=== PATIENT | male | born 1965 | race Two or more races ===

== ENCOUNTER 2025-01-05 06:22 | Inpatient (IN) | payer MEDICAID, OTHER ==
[~2025-01-05] VITALS: Ht 172.7 cm; Wt 103.0 kg
[~2025-01-05 06:22] MED LIST: AMIO200T13 PO; ATOR40TA52 PO; CLOP75TA70 PO; EMPA1TAB PO; METO25TA93 PO; SACU1TAB PO; SPIR25TA8 PO
[2025-01-05] MEDS: ONDANSETRON HCL 4 MG/2 ML VIAL IV ONE (07:00)
[2025-01-05] MEDS: MORPHINE SULFATE 4 MG/ML SYR/VIAL IV ONE (07:00)
--- NOTE | 2025-01-05 07:02 | ED.PDOC ---
History of Present Illness HPI Comments 59-year-old male BIBA with prior medical history of hypertension, mi x4: Surgical history of PTCA eight weeks go x1 and a chief complaint of chest pain. EMS report that the patient is visiting family when he had a sudden onset of pressure-like center chest pain x4/10 and took nitro 1:30 a.m.. States on t aking another nitro at 4:30 a.m. and started to get 6/10 chest pain. 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 Denies chills, fever, N/V/D, SOB. No other associated symptoms, modifiers, recent injuries or sick contacts present at this time. Time Seen by MD: 07:00 Reviewed Notes: Nurses Notes, Medications, Allergies Allergies: Coded Allergies: NO KNOWN ALLERGIES (Unverified , 01/05/25) Information Source: Patient, Emergency Med Personnel Mode of Arrival: EMS Severity: Moderate Timing: Hours Duration: Since onset, Hours Prehospital treatment: None Past Medical History PAST MEDICAL HISTORY: HTN, ID (X4) Surgical History: PTCA (X1 eight weeks ago), Denies all surgeries Family History Family History: Reviewed,noncontributory to illness, Unknown Social History Smoker: Non-Smoker Alcohol: Denies ETOH Use Drugs: Denies Drug Use Lives In: Home Constitutional: denies: chills, diaphoresis, fatigue, fever, malaise, sweats, weakness, others EENTM: denies: blurred vision, double vision, ear bleeding, ear discharge, ear drainage, ear pain, ear ringing, eye pain, eye redness, hearing loss, mouth pain, mouth swelling, nasal discharge, nose bleeding, nose congestion, nose pain, photophobia, tearing, throat pain, throat swelling, voice changes, others Respiratory: denies: cough, hemoptysis, orthopnea, SOB at rest, shortness of breath, SOB with excertion, stridor, wheezing, others Cardiovascular: reports: chest pain; denies: dizzy spells, diaphoresis, Dyspnea on exertion, edema, irregular heart beat, left arm pain, lightheadedness, palpitations, PND, syncope, others Gastrointestinal: denies: abdomen distended, abdominal pain, blood streaked bowels, constipated, diarrhea, dysphagia, difficulty swallowing, hematemesis, melena, nausea, poor appetite, poor fluid intake, rectal bleeding, rectal pain, vomiting, others Genitourinary: denies: burning, dysuria, flank pain, frequency, hematuria, incontinence, penile discharge, penile sore, pain, testicle pain, testicle swelling, urgency, others Neurological: denies: dizziness, fainting, headache, left sided numbness, left sided weakness, numbness, paresthesia, pre-existing deficit, right sided numbness, right sided weakness, seizure, speech problems, tingling, tremors, weakness, others Musculoskeletal: denies: back pain, gout, joint pain, joint swelling, muscle pain, muscle stiffness, neck pain, others Integumetry: denies: bruises, change in color, change in hair/nails, dryness, laceration, lesions, lumps, rash, wounds, others Allergic/Immunocompromised: denies: Difficulty Healing, Frequent Infections, Hives, Itching, others Hematologic/Lymphatic: denies: anemia, blood clots, easy bleeding, easy bruising, swollen glands, others Endocrine: denies: excessive hunger, excessive sweating, excessive thirst, excessive urination, flushing, intolerance to cold, intolerance to heat, unexplained weight gain, unexplained weight loss, others Psychiatric: denies: anxiety, bipolar disorder, depression, hopeless, panic disorder, schizophrenia, sleepless, suicidal, others All Other Systems: Reviewed and Negative Physical Exam General Appearance: Moderate Distress, Normal HEENT: Normal ENT Inspection, Pharynx Normal, TMs Normal Neck: Full Range of Motion, Non-Tender, Normal, Normal Inspection Respiratory: Chest Non-Tender, Lungs Clear, No Accessory Muscle Use, No Respiratory Distress, Normal Breath Sounds Cardiovascular: No Edema, No JVD, No Murmur, No Gallop, Normal Peripheral Pulses, Regular Rate/Rhythm Breast Exam: Deferred Gastrointestinal: No Organomegaly, Non Tender, No Pulsatile Mass, Normal Bowel Sounds, Soft Genitalia: Deferred Pelvic: Deferred Rectal: Deferred Extremities: No calf tenderness, Normal capillary refill, Normal inspection, Normal range of motion, Non-tender, No pedal edema Musculoskeletal : Apperance: Normal Neurologic: Alert, rrt II-XII nml as Tested, No Motor Deficits, Normal Affect, Normal Mood, No Sensory Deficits Cerebellar Function: NOT DONE Reflexes: NOT DONE Skin: Dry, Normal Color, Warm Peripheral Pulses: 3+ Radial (R), 3+ Radial (L) Lymphatic: No Adenopathy Was a procedure done? Was a procedure done?: No Differential Dx Considerations may include: Coronary artery disease Electrolyte imbalance X-Ray, Labs, Meds, VS Vital Signs Date Time Temp Pulse Resp B/P (MAP) Pulse Ox O2 Delivery O2 Flow Rate FiO2 01/05/25 08:00 62 01/05/25 07:35 64 01/05/25 07:26 64 01/05/25 07:09 71 01/05/25 06:22 98.0 70 16 105/60 98 98.0 Lab Test 01/05/25 08:09 01/05/25 07:16 Range/Units Troponin I High Sensitivity 9 12 </=54 ng/L White Blood Count 5.8 4.4-10.8 10^3/uL Red Blood Count 5.08 4.5-5.90 10^6/uL Hemoglobin 15.6 13.5-17.5 g/dL Hematocrit 45.3 41.0-53.0 % Mean Corpuscular Volume 89.2 80.0-100.0 fL Mean Corpuscular Hemoglobin 30.6 28.0-32.0 pg Mean Corpuscular Hemoglobin Concent 34.4 32.0-36.0 g/dL Red Cell Distribution Width 13.5 11.8-14.3 % Platelet Count 131 L 140-450 10^3/uL Mean Platelet Volume 10.5 6.9-10.8 fL Neutrophils (%) (Auto) 69.9 37.0-80.0 % Lymphocytes (%) (Auto) 19.2 10.0-50.0 % Monocytes (%) (Auto) 9.3 0.0-12.0 % Eosinophils (%) (Auto) 1.0 0.0-7.0 % Basophils (%) (Auto) 0.6 0.0-2.0 % Neutrophils # (Auto) 4.1 1.6-8.6 10 ^3/uL Lymphocytes # (Auto) 1.1 0.4-5.4 10 ^3/uL Monocytes # (Auto) 0.5 0-1.3 10 ^3/uL Eosinophils # (Auto) 0.1 0-0.8 10 ^3/uL Basophils # (Auto) 0 0-0.2 10 ^3/uL Nucleated Red Blood Cells 0.1 % Sodium Level 143 136-145 mmol/L Potassium Level 3.5 3.5-5.1 mmol/L Chloride Level 108 H 98-107 mmol/L Carbon Dioxide Level 22 20-31 mmol/L Anion Gap 13 5-15 Blood Urea Nitrogen 11 9-23 mg/dL Creatinine 1.01 0.700-1.30 mg/dL Glomerular Filtration Rate Calc 85 >90 mL/min BUN/Creatinine Ratio 10.9 10.0-20.0 Serum Glucose 115 H 74-106 mg/dL Calcium Level 8.9 8.7-10.4 mg/dL Total Bilirubin 0.9 0.2-1.0 mg/dL Aspartate Amino Transferase (AST) 14 13-40 U/L Alanine Aminotransferase (ALT) 19 7-40 U/L Alkaline Phosphatase 51 46-116 U/L Total Protein 6.7 5.7-8.2 g/dL Albumin 4.2 3.2-4.8 g/dL [place] [id number] Ph: [phone] DIAGNOSTIC IMAGING Diagnostic Imaging Report : [id number] Signed PATIENT: JACKSON HIGUERA ACCT: [id number] UNIT: [id number] : 1965 LOC: ER ROOM / BED: / AGE / SEX: 59 / M ADM STATUS: REG ER SERVICE 0700 ORDERING PHYSICIAN: JUDY MICHEL MD PROCEDURE(s): CXRP - CHEST PORTABLE REASON: sob ORDER NUMBER(s): [id number], ACCESSION NUMBER(s): [id number] XY CHEST PORTABLE, HISTORY: sob COMPARISON: XY CHEST XRAY 1 VIEW on DOS: 11/12/24, CT CT ANGIO CHEST CONTRAST on DOS: 10/21/24, XY CHEST XRAY 1 VIEW on DOS: 10/21/24 XY CHEST XRAY 1 VIEW on DOS: 11/12/24, CT CT ANGIO CHEST CONTRAST on DOS: 10/21/24, XY CHEST XRAY 1 VIEW on DOS: 10/21/24 TECHNICAL DATA: 1 view of the chest was obtained. FINDINGS: Lines and tubes: None Cardiomediastinal silhouette: normal Pulmonary vasculature: normal Lung expansion: normal Lung airspace: normal Lung interstitium: normal Pleura: normal Pneumothorax: no Bones: Unremarkable Other: no IMPRESSION: No acute intrathoracic abnormality. Patient alert. Complaining of chest pain. Vitals stable. Answering questions. EKG does show premature ventricular contraction. History of coronary artery disease. Recent stent placement. Was given nitro prior to coming. Has no relief with nitro. Establish intravenous access. Was given fluids. Was given morphine. Was given Zofran. Reviewed his previous visit. Explained to the patient. Continue to monitor. Time of 1ST Reevaluation: 07:30 Reevaluation 1ST: Unchanged Patient Education/Counseling: Diagnosis, Treatment, Prognosis Family Education/Counseling: No Family Present SEPSIS Sepsis Screen Physician Orders Chest Portable (01/05/25 07:00) Urinalysis (01/05/25 07:00) Troponin-I Hs (01/05/25 10:00) Vital Signs Date Time Temp Pulse Resp B/P (MAP) Pulse Ox O2 Delivery O2 Flow Rate FiO2 01/05/25 08:00 62 01/05/25 07:35 64 01/05/25 07:26 64 01/05/25 07:09 71 01/05/25 06:22 98.0 70 16 105/60 98 98.0 Laboratory Tests Test 01/05/25 07:16 White Blood Count 5.8 10^3/uL (4.4-10.8) Departure 1 Departure Time of Disposition: 07:52 Impression: Primary Impression: Chest pain of unknown etiology Disposition: ADMITTED INPATIENT Admit to: Med Surg Condition: Guarded Critical Care Note Critical Care Time?: Yes (90 min-critical care time only) Stability Stability form required: No Heart Score Heart Score: Heart Score Response (Comments) Value History Slightly Suspicious 0 EKG Normal 0 Age 45-64 1 Risk Factors >3 or Hx ASHD 2 Troponin Normal limit 0 Total 3 I personally scribed for JUDY MICHEL MD ([email or web address]) on 01/05/25 at 07:02. Electronically submitted by Saleem Gao ([email or web address]). I personally scribed for UJDY MICHEL MD ([email or web address]) on 01/05/25 at 09:25. Electronically submitted by Saleem Gao ([email or web address]). JUDY MICHEL MD Jan 05, 2025 07:02
[2025-01-05 07:38] LABS: Hematocrit 45.3 % (41.0-53.0); Hemoglobin 15.6 g/dL (13.5-17.5); Mean Corpuscular Hemoglobin 30.6 pg (28.0-32.0); Mean Corpuscular Volume 89.2 fL (80.0-100.0); Nucleated Red Blood Cells % 0.1 %
[2025-01-05 07:58] LABS: Alanine Aminotransferase 19 U/L (7-40); Alkaline Phosphatase 51 U/L (46-116); Anion Gap 13 (5-15); Calcium 8.9 mg/dL (8.7-10.4); Carbon Dioxide 22 mmol/L (20-31); Potassium 3.5 mmol/L (3.5-5.1); Sodium 143 mmol/L (136-145)
[2025-01-05 07:59] LABS: Albumin 4.2 g/dL (3.2-4.8); BUN/Creatinine Ratio 10.9 (10.0-20.0); Bilirubin, Total 0.9 mg/dL (0.2-1.0); Blood Urea Nitrogen 11 mg/dL (9-23); Total Protein 6.7 g/dL (5.7-8.2)
[2025-01-05 08:04] LABS: Chloride 108 mmol/L (98-107); Glucose 115 mg/dL (74-106)
--- NOTE | 2025-01-05 08:09 | DVH ---
XY CHEST PORTABLE, HISTORY: sob COMPARISON: XY CHEST XRAY 1 VIEW on DOS: 11/12/24, CT CT ANGIO CHEST CONTRAST on DOS: 10/21/24, XY CHES T XRAY 1 VIEW on DOS: 10/21/24 XY CHEST XRAY 1 VIEW on DOS: 11/12/24, CT CT ANGIO CHEST CONTRAST on DOS: 10/21/24, XY CHEST XRAY 1 VIE W on DOS: 10/21/24 TECHNICAL DATA: 1 view of the chest was obtained. FINDINGS: Lines and tubes: None Cardiomediastinal silhouette: normal Pulmonary vasculature: normal Lung expansion: normal Lung airspace: normal Lung interstitium: normal Pleura: normal Pneumothorax: no Bones: Unremarkable Other: no IMPRESSION: No acute intrathoracic abnormality.
[2025-01-05] MEDS: METOPROLOL SUCCINATE XL 50 MG TAB PO SCH (10:00)
[2025-01-05] MEDS ORDERED: ACETAMINOPHEN 325 MG TAB PO PRN (10:00)
[2025-01-05] MEDS ORDERED: NITROGLYCERIN 0.4 MG SL TAB SL PRN (10:00)
[2025-01-05] MEDS ORDERED: MORPHINE SULFATE INJ 2 MG/ml SYRG IV PRN (10:00)
[2025-01-05] MEDS: SACUBITRIL-VALSARTAN 24mg/26mg TAB PO SCH (10:00)
[2025-01-05 12:29] LABS: Urine Protein, UAD TRACE (Negative)
[2025-01-05] MEDS: SPIRONOLACTONE 25 MG TAB PO SCH (12:45)
[2025-01-05] MEDS: EMPAGLIFLOZIN 10 MG TAB PO SCH (12:45)
[2025-01-05] MEDS: CLOPIDOGREL BISULFATE 75 MG TAB PO ONE (12:45)
--- NOTE | 2025-01-05 17:42 | DVHHP2 ---
History of Present Illness History of Present Illness This is a 59-year-old male with past medical history of congestive heart failure with reduced ejection fraction 30%, PTCA status post stent RCA on 11/15/2024, unprovoked DVT on Xarelto, HLD, HTN, pulmonary hypertension, CA x3 with nonischemic cardiomyopathy, PVC, pneumonia BIBEMS due to chest pain which is sudden onset around 1:30 a.m. retrosternal, 7/10 intensity, pressure-like sensation, no radiation, not relieved by nitroglycerin tablets, no aggravating factor. Patient chest pain persist and around 4:00 a.m. he took another nitroglycerin but intensity of chest pain is not changes and decided to call ambulance and came to ER. Patient recent history of PTCA with Angioplasty was performed Successfully and stenting of the RCA. 8 weeks ago and currently on DOAC. Patient compliance with his medication. In ER patient received morphine and chest pain subsides. Currently patient denies any chest pain, SOB, headache, fever, abdominal pain, dysuria. Patient was follow-up with Cardiology in [facility]. Past medical history: CHF with reduced ejection fraction 30%, PTCA status post stent RCA on 11/15/2024, DVT on Xarelto, HLD, HTN, pulmonary hypertension, CA x3 with nonischemic cardiomyopathy, PVC, pneumonia Surgical history: PTCA status post stent RCA on 11/15/2024, History: Nothing Contributory Social history: Stopped smoking 1993, no EtOH or illicit drug use PCP: [facility] Review of Systems Constitutional: Yes: Malaise; No: Fever, Chills, Sweats, Weakness, Other Eyes: No: Pain, Vision change, Conjunctivae inflammation, Eyelid inflammation, Other, Redness ENT: No: Ear pain, Ear discharge, Nose pain, Nose discharge, Nose congestion, Mouth pain, Mouth swelling, Throat pain, Throat swelling, Other Respiratory: No: Cough, Dry, Shortness of breath, SOB with excertion, Wheezing, Hemoptysis, Pleuritic Pain, Sputum, Wheezing, Other Cardiovascular: Chest Pain, Orthopnea, Lt Headedness; No: Palpitations, Paroxysmal Noc. Dyspnea, Edema, Other Gastrointestinal: No: Nausea, Vomiting, Abdominal Pain, Diarrhea, Constipation, Melena, Hematochezia, Other Genitourinary: No Dysuria, No Frequency, No Incontinence, No Hematuria, No Retention, No Other Musculoskeletal: No: other, neck pain, shoulder pain, arm pain, back pain, hand pain, leg pain, foot pain Skin: No: Rash, Lesions, Jaundice, Bruising, Other Neurological: No: Weakness, Numbness, Incoordination, Change in speech, Confusion, Seizures, Other Allergies: Coded Allergies: NO KNOWN ALLERGIES (Unverified , 01/05/25) Medications Current Medications Medications Dose Ordered Sig/Leobardo Route Start Time Stop Time Status Last Admin Dose Admin Acetaminophen 650 mg Q6HP PRN PO 01/05/25 10:00 Nitroglycerin 0.4 mg Q5MINP PRN SL 01/05/25 10:00 Morphine Sulfate 2 mg Q30M PRN IV 01/05/25 10:00 Metoprolol Succinate 25 mg DAILY PO 01/05/25 10:00 Empaglifozin 10 mg DAILY PO 01/05/25 10:00 01/05/25 12:45 10 MG Spironolactone 25 mg DAILY PO 01/05/25 10:00 01/05/25 12:45 25 MG Atorvastatin Calcium 40 mg HS PO 01/05/25 22:00 Sacubitril/ Valsartan 1 tab BID PO 01/05/25 10:00 Exam Vital Signs Vital Signs Date Time Temp Pulse Resp B/P (MAP) Pulse Ox O2 Delivery O2 Flow Rate FiO2 01/05/25 16:05 69 13 99/56 (70) 92 01/05/25 08:00 99.4 99.4 01/05/25 08:00 Room Air* 0 21 General Appearance: Alert, Oriented X3, Cooperative, mild distress HEENT: Atraumatic, PERRLA, EOMI Respiratory: Clear to auscultation Cardiovascular: Regular rate, Normal S1 Abdominal: Normal bowel sounds, No hepatospenomegaly, No masses Extremities: No clubbing, No cyanosis, No edema, Normal pulses Skin: No rashes, No breakdown, No significant lesion Neuro: Normal gait, Normal speech, Strength at 5/5 X4 ext, Normal tone Psych/Mental Status: Mood NL Labs/Xrays Labs Test 01/05/25 12:00 01/05/25 10:13 01/05/25 07:16 Range/Units Urine Color Light-yellow Yellow Urine Clarity Clear Clear Urine pH 8.5 5.0-9.0 Urine Specific [place] 1.021 1.001-1.035 Urine Protein Trace H Negative Urine Ketones Negative Negative Urine Blood Negative Negative /uL Urine Nitrite Negative Negative Urine Bilirubin Negative Negative Urine Urobilinogen Normal Negative mg/dL Urine Leukocyte Esterase Negative Negative /uL Urine RBC <1 0 - 3 /hpf Urine Microscopic WBC 1 0-3 /HPF Urine Squamous Epithelial Cells Few <5 /hpf Urine Bacteria None seen None Seen /hpf Urine Glucose 4+ H Normal mg/dL Troponin I High Sensitivity 9 </=54 ng/L White Blood Count 5.8 4.4-10.8 10^3/uL Red Blood Count 5.08 4.5-5.90 10^6/uL Hemoglobin 15.6 13.5-17.5 g/dL Hematocrit 45.3 41.0-53.0 % Mean Corpuscular Volume 89.2 80.0-100.0 fL Mean Corpuscular Hemoglobin 30.6 28.0-32.0 pg Mean Corpuscular Hemoglobin Concent 34.4 32.0-36.0 g/dL Red Cell Distribution Width 13.5 11.8-14.3 % Platelet Count 131 L 140-450 10^3/uL Mean Platelet Volume 10.5 6.9-10.8 fL Neutrophils (%) (Auto) 69.9 37.0-80.0 % Lymphocytes (%) (Auto) 19.2 10.0-50.0 % Monocytes (%) (Auto) 9.3 0.0-12.0 % Eosinophils (%) (Auto) 1.0 0.0-7.0 % Basophils (%) (Auto) 0.6 0.0-2.0 % Neutrophils # (Auto) 4.1 1.6-8.6 10 ^3/uL Lymphocytes # (Auto) 1.1 0.4-5.4 10 ^3/uL Monocytes # (Auto) 0.5 0-1.3 10 ^3/uL Eosinophils # (Auto) 0.1 0-0.8 10 ^3/uL Basophils # (Auto) 0 0-0.2 10 ^3/uL Nucleated Red Blood Cells 0.1 % Sodium Level 143 136-145 mmol/L Potassium Level 3.5 3.5-5.1 mmol/L Chloride Level 108 H 98-107 mmol/L Carbon Dioxide Level 22 20-31 mmol/L Anion Gap 13 5-15 Blood Urea Nitrogen 11 9-23 mg/dL Creatinine 1.01 0.700-1.30 mg/dL Glomerular Filtration Rate Calc 85 >90 mL/min BUN/Creatinine Ratio 10.9 10.0-20.0 Serum Glucose 115 H 74-106 mg/dL Calcium Level 8.9 8.7-10.4 mg/dL Total Bilirubin 0.9 0.2-1.0 mg/dL Aspartate Amino Transferase (AST) 14 13-40 U/L Alanine Aminotransferase (ALT) 19 7-40 U/L Alkaline Phosphatase 51 46-116 U/L Total Protein 6.7 5.7-8.2 g/dL Albumin 4.2 3.2-4.8 g/dL SEPSIS Sepsis Screen Date sepsis recognized/suspect: Jan 05, 2025 Time Sepsis recognized/suspect: 08 Recent Procedure: No On Antibiotic Therapy: No Respiratory Rate >20: No Heart Rate >90: No Temp<36 C (96.8 F) or >38.3 C: No SBP <90 or MAP <65 mmHG: No New Acute Mental Status Change: No Is the patient on CPAP, BIPAP,: No Physician Orders Admit (01/05/25 09:48) Code Status (01/05/25 09:48) Cardiac Diet-2gna,Lofat,Lochol (01/05/25 Lunch) Acetaminophen Tablet (Tylenol Tablet) (01/05/25 10:00) Nitroglycerin Sublingual (Ntrostat Subli (01/05/25 10:00) Morphine Sulfate Injection (01/05/25 10:00) Notify Md Of Changes From Base (01/05/25 09:48) Emergency Dysrhythmia Protocol (01/05/25 09:48) Rhythm Strips Once Every Shift (01/05/25 09:48) [employer] P[employer]her For 24 Hours (01/05/25 09:48) Metoprolol Xl Succinate (Toprol Xl) (01/05/25 10:00) Empagliflozin (Jardiance) (01/05/25 10:00) Spironolactone (Aldactone) (01/05/25 10:00) Atorvastatin (Lipitor) (01/05/25 22:00) Sacubitril-Valsartan (Entresto 24-26 Mg (01/05/25 10:00) Vital Signs Date Time Temp Pulse Resp B/P (MAP) Pulse Ox O2 Delivery O2 Flow Rate FiO2 01/05/25 16:05 69 13 99/56 (70) 92 01/05/25 16:00 74 01/05/25 14:05 72 14 112/69 (83) 96 01/05/25 12:20 51 13 108/58 (75) 97 01/05/25 12:00 92 01/05/25 10:05 62 14 92/63 (73) 96 01/05/25 10:00 64 104/52 Laboratory Tests Test 01/05/25 07:16 White Blood Count 5.8 10^3/uL (4.4-10.8) Medications Medications Dose Ordered Sig/Leobardo Route Start Time Stop Time Status Last Admin Dose Admin Clopidogrel Bisulfate 75 mg ONCE ONCE PO 01/05/25 10:00 01/05/25 10:54 DC 01/05/25 12:45 75 MG Empaglifozin 10 mg DAILY PO 01/05/25 10:00 01/05/25 12:45 10 MG Spironolactone 25 mg DAILY PO 01/05/25 10:00 01/05/25 12:45 25 MG Assessment/Plan Assessment/Plan Chest pain rule out acute coronary syndrome Congestive heart failure NYHA class II Chronic systolic heart failure, EF 30% Patient came with chest pain EKG shows no ST segment changes Troponins x 2 negative ER patient received morphine GDMT optimized- Metoprolol 25 mg Jardiance 10 mg Spironolactone 25 mg Entresto 24/26 mg Monitor vital DVT on Xarelto Continue Xarelto No signs symptoms of active bleeding Hyperlipidemia Atorvastatin 40 mg Lipid profile Lifestyle modification Essential hypertension Metoprolol 25 mg Monitor blood pressure History of CA x3 with nonischemic cardiomyopathy with RCA stent placement Follow-up with cardiology outpatient Clopidogrel 75 mg Xarelto 10 mg Type 2 diabetes mellitus Continue Jardiance 10 mg Obesity with BMI 33.5 Lifestyle modification Diet cardiac GI prophylaxis pantoprazole DVT prophylaxis Xarelto Goals of care discussion. More than 24 minute spent with patient. CASE DISCUSSED WITH DR. KAUFFMAN Plan discussed with: Patient, Other My Orders Orders - GUS PERDOMO RESIDENT Procedure Category Date Status Time Admit ADMIT 01/05/25 Transmitted 09:48 Code Status CODE 01/05/25 Transmitted 09:48 Cardiac DIET 01/05/25 Transmitted Diet-2gna,Lofat,Lochol Lunch Acetaminophen Tablet PHA 01/05/25 In Process (Tylenol Tablet) 10:00 Nitroglycerin PHA 01/05/25 In Process Sublingual (Ntrostat 10:00 Morphine Sulfate PHA 01/05/25 In Process Injection 10:00 Notify Md Of Changes [facility] 01/05/25 In Process From Base 09:48 Emergency Dysrhythmia [facility] 01/05/25 In Process Protocol 09:48 Rhythm Strips Once [facility] 01/05/25 In Process Every Shift 09:48 [employer] For [facility] 01/05/25 In Process 24 Hours 09:48 Metoprolol Xl PHA 01/05/25 In Process Succinate (Toprol Xl) 10:00 Empagliflozin PHA 01/05/25 In Process (Jardiance) 10:00 Spironolactone PHA 01/05/25 In Process (Aldactone) 10:00 Atorvastatin (Lipitor) PHA 01/05/25 In Process 22:00 Sacubitril-Valsartan PHA 01/05/25 In Process (Entresto 24-26 Mg 10:00 Date of Service: Jan 05, 2025 Billing Provider: HANNAH KAUFFMAN MD Common Visit Codes: [id number] INP/OBS CARE (HIGH) Secondary Visit Codes: [id number] CARE PLAN 30 MINUTES GUS PERDOMO RESIDENT Jan 05, 2025 17:42
[2025-01-05 19:30] VITALS: PULSE 77; RESP 12; O2SAT 96
[2025-01-05 22:23] VITALS: BP 113/64; PULSE 63; RESP 17; TEMP 97.7; O2SAT 95
[2025-01-05] MEDS: ATORVASTATIN 20 MG TAB PO SCH (22:31)
[2025-01-06] VITALS (8 sets, daily range): BP systolic 94–118; BP diastolic 62–78; PULSE 57–84; RESP 16–20; TEMP 96.3–98.6; O2SAT 93–99
[2025-01-06 06:17] LABS: Potassium 4.0 mmol/L (3.5-5.1); Sodium 143 mmol/L (136-145)
[2025-01-06 06:18] LABS: Anion Gap 9 (5-15); Calcium 8.9 mg/dL (8.7-10.4); Carbon Dioxide 25 mmol/L (20-31)
[2025-01-06 06:23] LABS: BUN/Creatinine Ratio 9.8 (10.0-20.0); Blood Urea Nitrogen 11 mg/dL (9-23); Glucose 93 mg/dL (74-106)
[2025-01-06 06:24] LABS: Chloride 109 mmol/L (98-107)
[2025-01-06 06:33] LABS: Hematocrit 43.8 % (41.0-53.0); Hemoglobin 15.0 g/dL (13.5-17.5); Mean Corpuscular Hemoglobin 31.2 pg (28.0-32.0); Mean Corpuscular Volume 90.8 fL (80.0-100.0); Nucleated Red Blood Cells % 0.1 %
[2025-01-06] MEDS: CLOPIDOGREL BISULFATE 75 MG TAB PO ONE (15:59)
--- NOTE | 2025-01-06 16:39 | DVHINCON2 ---
Date Seen: Jan 06, 2025 Referring Physician MD Kiarra Reason for Consultation Chest pain with recent stent placement History of Present Illness This is a pleasant 59-year-old man who presented to the emergency room via EMS with a chief complaint of chest pain. The patient reports he has developed chest pain episodes awakening him from his sleep. Describes his chest pain as substernal, nonradiating, pressure-like, intermittent, and associated with SOB, diaphoresis, insomnia, and anxiety. At time of events, the patient takes NTG SL and sometimes he takes sodium bicarbonate water with successful relief of symptoms. He underwent multiple 12 lead electrocardiogram revealing a sinus rhythm with T-wave inversion to leads V5-V6, these changes are non-progressive and seen on 12 lead ECGs from previous admissions. Serial troponin levels are negative. He underwent a recent cardiac catheterization with successful PTCA a nd stenting of the proximal RCA including one MICHELLE. States he is compliant with Plavix therapy and Xarelto given history of LLE DVT and PE. 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 Past Medical History Past medical history reviewed. No other significant than mentioned above. Past Surgical History PTCA with stent placement to the proximal RCA x1 MICHELLE, Dec-2024 Family History: Cardiovascular disease G8 MOTHER G8 FATHER Family History Family history reviewed. Social History Denies the use of illicit drugs, alcohol, or tobacco use. Allergies: Coded Allergies: NO KNOWN ALLERGIES (Unverified , 01/05/25) Home Meds Home medications reviewed. Current Medications Current Medications Medications (Trade) Dose Ordered Sig/Leobardo Route PRN Reason Start Time Stop Time Status Last Admin Atorvastatin Calcium (Lipitor) 40 mg HS PO 01/05/25 22:00 01/05/25 22:31 Enoxaparin Sodium (Lovenox) 100 mg Q12HR SC 01/06/25 22:00 Clopidogrel Bisulfate (Plavix) 75 mg DAILY PO 01/07/25 10:00 Review of Systems Constitutional: Insomnia Ears, Nose, & Throat: No symptom reported Eyes: No symptom reported Neurological: No symptoms reported Pulmonary/Respiratory: No symptom reported Cardiovascular: Chest pain, SOB, diaphoresis Gastrointestinal: No symptom reported Genitourinary: No symptom reported Musculoskeletal: No symptom reported Skin: No symptom reported Psychiatric: No symptom reported Endocrine: No symptom reported Hemotologic/Lymphatic: No symptom reported Vital Signs Vital Signs Date Time Temp Pulse Resp B/P (MAP) Pulse Ox O2 Delivery O2 Flow Rate FiO2 01/06/25 13:21 98.6 67 16 102/72 (82) 97 98.6 01/06/25 08:00 Room Air* 0 21 Physical Exam General Appearance: Cooperative. Well developed. Obese. In no acute distress Head Exam: Normal inspection Neck Exam: Normal inspection. Non-tender. Normal alignment Pulmonary/Respiratory: Chest non-tender. Clear bilateral breath sounds Cardiovascular/Chest: Regular rate and rhythm. S1, S2. Sinus rhythm with T- wave inversion to lead V5-V6. No murmurs. No JVD. Peripheral Pulses: 2+ Radial (R). 2+ Radial (L). 2+ Pedal (R). 2+ Pedal (L) Abdominal Exam: Normal bowel sounds. Soft. Nontender. No hepatospenomegaly. No masses Ankle Exam: Negative ankle edema Lower extremities: Negative lower extremity edema Neuro/Mental Status: A&O x4. Coherent Thoughts/Psych: Normal thought pattern. Appropriate mood and affect. Good judgement and insight Appearance: In no acute distress Skin Exam: Normal inspection. Normal color. Warm. Dry Labs/Diagnostic Data Labs Test 01/06/25 05:25 01/05/25 12:00 01/05/25 10:13 01/05/25 07:16 Range/Units White Blood Count 6.3 4.4-10.8 10^3/uL Red Blood Count 4.82 4.5-5.90 10^6/uL Hemoglobin 15.0 13.5-17.5 g/dL Hematocrit 43.8 41.0-53.0 % Mean Corpuscular Volume 90.8 80.0-100.0 fL Mean Corpuscular Hemoglobin 31.2 28.0-32.0 pg Mean Corpuscular Hemoglobin Concent 34.4 32.0-36.0 g/dL Red Cell Distribution Width 13.5 11.8-14.3 % Platelet Count 113 L 140-450 10^3/uL Mean Platelet Volume 10.2 6.9-10.8 fL Neutrophils (%) (Auto) 64.2 37.0-80.0 % Lymphocytes (%) (Auto) 22.7 10.0-50.0 % Monocytes (%) (Auto) 10.4 0.0-12.0 % Eosinophils (%) (Auto) 2.2 0.0-7.0 % Basophils (%) (Auto) 0.5 0.0-2.0 % Neutrophils # (Auto) 4.0 1.6-8.6 10 ^3/uL Lymphocytes # (Auto) 1.4 0.4-5.4 10 ^3/uL Monocytes # (Auto) 0.7 0-1.3 10 ^3/uL Eosinophils # (Auto) 0.1 0-0.8 10 ^3/uL Basophils # (Auto) 0 0-0.2 10 ^3/uL Nucleated Red Blood Cells 0.1 % Sodium Level 143 136-145 mmol/L Potassium Level 4.0 3.5-5.1 mmol/L Chloride Level 109 H 98-107 mmol/L Carbon Dioxide Level 25 20-31 mmol/L Anion Gap 9 5-15 Blood Urea Nitrogen 11 9-23 mg/dL Creatinine 1.12 0.700-1.30 mg/dL Glomerular Filtration Rate Calc 75 >90 mL/min BUN/Creatinine Ratio 9.8 L 10.0-20.0 Serum Glucose 93 74-106 mg/dL Calcium Level 8.9 8.7-10.4 mg/dL Vitamin B12 Level 839 211-911 pg/mL Vitamin D 25-Hydroxy 20.4 L 30.0-100 ng/mL Urine Color Light-yellow Yellow Urine Clarity Clear Clear Urine pH 8.5 5.0-9.0 Urine Specific Jackson 1.021 1.001-1.035 Urine Protein Trace H Negative Urine Ketones Negative Negative Urine Blood Negative Negative /uL Urine Nitrite Negative Negative Urine Bilirubin Negative Negative Urine Urobilinogen Normal Negative mg/dL Urine Leukocyte Esterase Negative Negative /uL Urine RBC <1 0 - 3 /hpf Urine Microscopic WBC 1 0-3 /HPF Urine Squamous Epithelial Cells Few <5 /hpf Urine Bacteria None seen None Seen /hpf Urine Glucose 4+ H Normal mg/dL Troponin I High Sensitivity 9 </=54 ng/L Total Bilirubin 0.9 0.2-1.0 mg/dL Aspartate Amino Transferase (AST) 14 13-40 U/L Alanine Aminotransferase (ALT) 19 7-40 U/L Alkaline Phosphatase 51 46-116 U/L Total Protein 6.7 5.7-8.2 g/dL Albumin 4.2 3.2-4.8 g/dL Assessment Chest pain rule out in-stent thrombosis Coronary artery disease status post PTCA of the proximal RCA x 1DES (on Plavix) Paroxysmal atrial fibrillation/flutter, Stage IIIa, now NSR Chronic compensated HFrEF, NYHA class II Ischemic cardiomyopathy with LVEF of 30% Chronic thromboembolic pulmonary emboli Hypertension Dyslipidemia Prediabetes Hx of LLE DVT/PE (on Xarelto therapy, 2020) Hx of tobacco use Obesity Plan/Recommendation (Dr. Alberto) Scheduled for coronary angiogram to rule out in-stent stenosis with Dr. Alberto on 01/08/2025. Transthoracic echocardiogram from 10/24/2024 revealed a LVEF of 30%. Repeat transthoracic echocardiogram for LV function evaluation. Continue single-antiplatelet therapy with Plavix and lipid lowering agent. Continue therapeutic Lovenox and transition to DOAC therapy with Xarelto post procedure ([id number] score: 4 points). Continue with guideline directed medical man agement for CHF as tolerated. Kindly call with any questions or concerns. Thank you for allowing us to care for this patient. This medical document was created using an electronic medical record system with voice recognition software and computerized dictation system. Although this document has been carefully reviewed, there might still be some phonetic and typographical errors. Occasional wrong-word or ``sound-alike substitutions may have occurred due to the inherent limitations of voice recognition software. These areas are purely typographical due to imperfections of the software programs and do not reflect any compromise in the patient's medical care. Please read the chart carefully and recognize, using context, where these substitutions have occurred. Plan discussed with: Patient, Other NYHA Physical activity limitations: Class1(None)absent sob, (fatigue,palpitaions w activity) Date of Service: Jan 06, 2025 Billing Provider: SELENA SHELLEY Cardiology Common Codes: [id number] INP/OBS CARE (High) SELENA SHELLEY Jan 06, 2025 16:39
--- NOTE | 2025-01-06 19:33 | DVHPNRES ---
Progress Note Date Seen: Jan 06, 2025 Resident Creating Document: GUS PERDOMO RESIDENT Medical Necessity Reason Pt with a Central, PICC or Fol: No Subjective Review of Systems This is a 59-year-old male with past medical history of congestive heart failure with reduced ejection fraction 30%, PTCA status post stent RCA on 11/15/2024, unprovoked DVT on Xarelto, HLD, HTN, pulmonary hypertension, WI x3 with nonischemic cardiomyopathy, PVC, pneumonia BIBEMS due to chest pain which is sudden onset around 1:30 a.m. retrosternal, 7/10 intensity, pressure-like sensation, no radiation, not relieved by nitroglycerin tablets, no aggravating factor. Patient chest pain persist and around 4:00 a.m. he took another nitroglycerin but intensity of chest pain is not changes and decided to call ambulance and came to ER. Patient recent history of PTCA with Angioplasty was performed Successfully and stenting of the RCA. 8 weeks ago and currently on DOAC. Patient compliance with his medication. In ER patient received morphine and chest pain subsides. Currently patient denies any chest pain, SOB, headache, fever, abdominal pain, dysuria. Patient was follow-up with Cardiology in [facility]. Past medical history: CHF with reduced ejection fraction 30%, PTCA status post stent RCA on 11/15/2024, DVT on Xarelto, HLD, HTN, pulmonary hypertension, WI x3 with nonischemic cardiomyopathy, PVC, pneumonia Surgical history: PTCA status post stent RCA on 11/15/2024, History: Nothing Contributory Social history: Stopped smoking 1993, no EtOH or illicit drug use PCP: [facility] Patient seen and evaluated today in bedside. Patient chest pain improved but feeling discomfort during minimal exertion. Cardiology consulted. No acute event overnight. Objective vital signs Vital Sign Date Time Temp Pulse Resp B/P (MAP) Pulse Ox O2 Delivery O2 Flow Rate FiO2 01/06/25 16:49 98.0 67 17 102/67 (79) 93 98.0 01/06/25 08:00 Room Air* 0 21 Total Intake and Output 01/05/25 01/05/25 01/06/25 15:00 23:00 07:00 Intake Total 240 ml Balance 240 ml medications Current Medications Medications Dose Ordered Sig/Leobardo Route Start Time Stop Time Status Last Admin Dose Admin Acetaminophen 650 mg Q6HP PRN PO 01/05/25 10:00 Nitroglycerin 0.4 mg Q5MINP PRN SL 01/05/25 10:00 Morphine Sulfate 2 mg Q30M PRN IV 01/05/25 10:00 Metoprolol Succinate 25 mg DAILY PO 01/05/25 10:00 01/06/25 09:13 25 MG Empaglifozin 10 mg DAILY PO 01/05/25 10:00 01/06/25 09:12 10 MG Spironolactone 25 mg DAILY PO 01/05/25 10:00 01/06/25 09:12 25 MG Atorvastatin Calcium 40 mg HS PO 01/05/25 22:00 01/05/25 22:31 40 MG Sacubitril/ Valsartan 1 tab BID PO 01/05/25 10:00 01/06/25 09:12 1 TAB Enoxaparin Sodium 100 mg Q12HR SC 01/06/25 22:00 Clopidogrel Bisulfate 75 mg DAILY PO 01/07/25 10:00 Examination General Appearance: Alert, Oriented X3, Cooperative, mild distress HEENT: Atraumatic, PERRLA, EOMI Respiratory: Clear to auscultation Cardiovascular: Regular rate, Normal S1 Abdominal: Normal bowel sounds, No hepatospenomegaly, No masses Extremities: No clubbing, No cyanosis, No edema, Normal pulses Skin: No rashes, No breakdown, No significant lesion Neuro: Normal gait, Normal speech, Strength at 5/5 X4 ext, Normal tone Psych/Mental Status: Mood NL laboratory and microbiology Laboratory Tests 01/06/25 05:25 Test 01/06/25 05:25 Range/Units Serum Glucose 93 74-106 mg/dL Problem List/Assessment/Plan Problem List/Assessment/Plan Chest pain rule out in-stent thrombosis Coronary artery disease status post PTCA of the proximal RCA x 1DES (on Plavix) Paroxysmal atrial fibrillation/flutter, Stage IIIa, now NSR Chronic compensated HFrEF, NYHA class II Ischemic cardiomyopathy with LVEF of 30% Patient came with chest pain EKG shows no ST segment changes Troponins x 2 negative ER patient received morphine GDMT optimized- Metoprolol 25 mg Jardiance 10 mg Spironolactone 25 mg Entresto 24/26 mg Cardiology consult appreciated Scheduled for coronary angiogram to rule out in-stent stenosis with Dr. Alberto on 01/08/2025. Continue therapeutic Lovenox Monitor vital DVT Home medicine Xarelto Lumps therapeutic dose No signs symptoms of active bleeding Vitamin-D deficiency Vitamin-D level 20.4 Vitamin D3 87284 units p.o. weekly Hyperlipidemia Atorvastatin 40 mg Lipid profile Lifestyle modification Essential hypertension Metoprolol 25 mg Monitor blood pressure History of WI x3 with nonischemic cardiomyopathy with RCA stent placement Follow-up with cardiology outpatient Clopidogrel 75 mg Lovenox therapeutic dose Type 2 diabetes mellitus Continue Jardiance 10 mg Obesity with BMI 33.5 Lifestyle modification Diet cardiac GI prophylaxis pantoprazole DVT prophylaxis Lovenox Goals of care discussion. More than 19 minute spent with patient. Plan discussed with Dr. Murray Plan discussed with: Patient, Other (Nurse) Date of Service: Jan 06, 2025 Billing Provider: HANNAH MURRAY MD Common Visit Codes: [id number] INP/OBS CARE(HIGH) GUS PERDOMO RESIDENT Jan 06, 2025 19:33 EDENILSON WRIGHT RESIDENT Jan 09, 2025 00:03 HANNAH MURRAY MD Jan 11, 2025 21:25
[2025-01-06 20:29] LABS: INR 1.03 (0.9-1.15); Partial Thromboplastin Time 20.5 SEC (24.5-34.5); Prothrombin Time 10.9 sec (9.3-11.8)
[2025-01-06] MEDS: ENOXAPARIN SOD 100 MG/1 ML SYRINGE SC SCH (21:58)
[2025-01-06] MEDS: ERGOCALCIFEROL 50,000 UNIT(1.25MG) CAP PO SCH (21:59)
[2025-01-07] VITALS (9 sets, daily range): BP systolic 96–113; BP diastolic 64–76; PULSE 54–83; RESP 16–20; TEMP 97.3–98; O2SAT 94–100
[2025-01-07 06:27] LABS: Hematocrit 47.3 % (41.0-53.0); Hemoglobin 16.1 g/dL (13.5-17.5); Mean Corpuscular Hemoglobin 31.2 pg (28.0-32.0); Mean Corpuscular Volume 91.7 fL (80.0-100.0); Nucleated Red Blood Cells % 0.1 %
[2025-01-07 06:36] LABS: Anion Gap 10 (5-15); Carbon Dioxide 27 mmol/L (20-31); Potassium 4.4 mmol/L (3.5-5.1); Sodium 145 mmol/L (136-145)
[2025-01-07 06:37] LABS: Calcium 9.2 mg/dL (8.7-10.4)
[2025-01-07 06:42] LABS: BUN/Creatinine Ratio 9.3 (10.0-20.0); Blood Urea Nitrogen 10 mg/dL (9-23)
[2025-01-07 06:47] LABS: Chloride 108 mmol/L (98-107)
[2025-01-07 06:58] LABS: Glucose 95 mg/dL (74-106)
--- NOTE | 2025-01-07 09:32 | DVHPN2 ---
Consult Progress Note Date Seen: Jan 07, 2025 Subjective Review of Systems: CVS:Normal, RESPIRATORY:Normal, NEURO:Normal Other Systems: Denies any cardiac symptoms Objective vital signs Vital Sign Date Time Temp Pulse Resp B/P (MAP) Pulse Ox O2 Delivery O2 Flow Rate FiO2 01/07/25 08:37 97.8 60 18 108/70 (83) 96 97.8 01/06/25 20:00 Room Air* 0 21 Total Intake and Output 01/06/25 01/06/25 01/07/25 14:59 22:59 06:59 Intake Total 800 ml 200 ml Balance 800 ml 200 ml medications Current Medications Medications Dose Ordered Sig/Leobardo Route Start Time Stop Time Status Last Admin Dose Admin Acetaminophen 650 mg Q6HP PRN PO 01/05/25 10:00 Nitroglycerin 0.4 mg Q5MINP PRN SL 01/05/25 10:00 Morphine Sulfate 2 mg Q30M PRN IV 01/05/25 10:00 Metoprolol Succinate 25 mg DAILY PO 01/05/25 10:00 01/06/25 09:13 25 MG Empaglifozin 10 mg DAILY PO 01/05/25 10:00 01/06/25 09:12 10 MG Spironolactone 25 mg DAILY PO 01/05/25 10:00 01/06/25 09:12 25 MG Atorvastatin Calcium 40 mg HS PO 01/05/25 22:00 01/06/25 21:51 40 MG Sacubitril/ Valsartan 1 tab BID PO 01/05/25 10:00 01/06/25 21:51 1 TAB Enoxaparin Sodium 100 mg Q12HR SC 01/06/25 22:00 01/06/25 21:58 100 MG Clopidogrel Bisulfate 75 mg DAILY PO 01/07/25 10:00 Ergocalciferol 50,000 unit Q7D PO 01/06/25 22:00 01/06/25 21:59 50,000 UNIT Aspirin 81 mg DAILY PO 01/07/25 10:00 UNV Examination: LUNGS:Normal, CVS:Normal, NEURO:Normal laboratory and microbiology Laboratory Tests 01/07/25 05:30 Test 01/07/25 05:30 Range/Units Serum Glucose 95 74-106 mg/dL Problem List/Assessment/Plan Problem List/Assessment/Plan Chest pain rule out in-stent thrombosis Coronary artery disease status post PTCA of the proximal RCA x 1DES (on Plavix) Paroxysmal atrial fibrillation/flutter, Stage IIIa, now NSR Chronic compensated HFrEF, NYHA class II Ischemic cardiomyopathy with LVEF of 30% Chronic thromboembolic pulmonary emboli Hx of LLE DVT/PE (on Xarelto therapy, 2020) Hypertension Dyslipidemia Prediabetes Hx of tobacco use Obesity Plan/Recommendation (Dr. Alberto) Scheduled for coronary angiogram to rule out in-stent stenosis with Dr. Alberto on 01/08/2025. Transthoracic echocardiogram from 10/24/2024 revealed a LVEF of 30%. Repeat transthoracic echocardiogram for LV function evaluation. Continue dual-antiplatelet therapy and lipid lowering agent. Continue therapeutic Lovenox and transition to DOAC therapy with Xarelto post procedure ([id number] score: 4 points). Initiate PPI. Continue with guideline directed medical management for CHF as tolerated. Kindly call with any questions or concerns. Thank you for allowing us to care for this patient. This medical document was created using an electronic medical record system with voice recognition software and computerized dictation system. Although this document has been carefully reviewed, there might still be some phonetic and typographical errors. Occasional wrong-word or ``sound-alike substitutions may have occurred due to the inherent limitations of voice recognition software. These areas are purely typographical due to imperfections of the software programs and do not reflect any compromise in the patient's medical care. Please read the chart carefully and recognize, using context, where these substitutions have occurred. Plan discussed with: Patient, Other Date of Service: Jan 07, 2025 Billing Provider: SELENA SHELLEY Cardiology Common Codes: [id number] HOSP CARE([facility] SELENA SHELLEY Jan 07, 2025 09:32
[2025-01-07] MEDS: CLOPIDOGREL BISULFATE 75 MG TAB PO SCH (11:28)
[2025-01-07] MEDS: PANTOPRAZOLE 40 MG/10 ML VIAL INJ IV SCH (11:28)
--- NOTE | 2025-01-07 11:43 | DVHPNRES ---
Progress Note Medical Necessity Reason Pt with a Central, PICC or Fol: No Objective vital signs Vital Sign Date Time Temp Pulse Resp B/P (MAP) Pulse Ox O2 Delivery O2 Flow Rate FiO2 01/07/25 11:28 59 114/79 01/07/25 08:37 97.8 18 96 97.8 01/07/25 08:00 Room Air* 0 21 Total Intake and Output 01/06/25 01/06/25 01/07/25 15:00 23:00 07:00 Intake Total 800 ml 200 ml Balance 800 ml 200 ml medications Current Medications Medications Dose Ordered Sig/Leobardo Route Start Time Stop Time Status Last Admin Dose Admin Acetaminophen 650 mg Q6HP PRN PO 01/05/25 10:00 Nitroglycerin 0.4 mg Q5MINP PRN SL 01/05/25 10:00 Morphine Sulfate 2 mg Q30M PRN IV 01/05/25 10:00 Metoprolol Succinate 25 mg DAILY PO 01/05/25 10:00 01/06/25 09:13 25 MG Empaglifozin 10 mg DAILY PO 01/05/25 10:00 01/07/25 11:29 10 MG Spironolactone 25 mg DAILY PO 01/05/25 10:00 01/07/25 11:28 25 MG Atorvastatin Calcium 40 mg HS PO 01/05/25 22:00 01/06/25 21:51 40 MG Sacubitril/ Valsartan 1 tab BID PO 01/05/25 10:00 01/07/25 11:28 1 TAB Enoxaparin Sodium 100 mg Q12HR SC 01/06/25 22:00 01/07/25 11:30 100 MG Clopidogrel Bisulfate 75 mg DAILY PO 01/07/25 10:00 01/07/25 11:28 75 MG Ergocalciferol 50,000 unit Q7D PO 01/06/25 22:00 01/06/25 21:59 50,000 UNIT Aspirin 81 mg DAILY PO 01/07/25 10:00 01/07/25 11:29 81 MG Pantoprazole Sodium 40 mg DAILY IV 01/07/25 10:00 01/07/25 11:28 40 MG laboratory and microbiology Laboratory Tests 01/07/25 05:30 Test 01/07/25 05:30 Range/Units Serum Glucose 95 74-106 mg/dL Problem List/Assessment/Plan Problem List/Assessment/Plan Chest pain rule out in-stent thrombosis Coronary artery disease status post PTCA of the proximal RCA x 1DES (on Plavix) Paroxysmal atrial fibrillation/flutter, Stage IIIa, now NSR Chronic compensated HFrEF, NYHA class II Ischemic cardiomyopathy with LVEF of 30% Patient came with chest pain EKG shows no ST segment changes Troponins x 2 negative ER patient received morphine GDMT optimized- Metoprolol 25 mg Jardiance 10 mg Spironolactone 25 mg Entresto 24/26 mg Cardiology consult appreciated Scheduled for coronary angiogram to rule out in-stent stenosis with Dr. Alberto on 01/08/2025. Continue therapeutic Lovenox Monitor vital DVT Home medicine Xarelto Lumps therapeutic dose No signs symptoms of active bleeding Vitamin-D deficiency Vitamin-D level 20.4 Vitamin D3 84474 units p.o. weekly Hyperlipidemia Atorvastatin 40 mg Lipid profile Lifestyle modification Essential hypertension Metoprolol 25 mg Monitor blood pressure History of [place] x3 with nonischemic cardiomyopathy with RCA stent placement Follow-up with cardiology outpatient Clopidogrel 75 mg Lovenox therapeutic dose Type 2 diabetes mellitus Continue Jardiance 10 mg Obesity with BMI 33.5 Lifestyle modification Diet cardiac GI prophylaxis pantoprazole DVT prophylaxis Lovenox Goals of care discussion. More than 19 minute spent with patient. Plan discussed with Dr. Murray My Orders My Orders Orders - GUS PERDOMO RESIDENT Procedure Category Date Status Time Ergocalciferol PHA 01/06/25 In Process (Vitamin D 50,000 22:00 GUS PERDOMO RESIDENT Jan 07, 2025 11:43
--- NOTE | 2025-01-07 13:12 | DVHSR ---
APPROVED REPORT EXAM: LIMITED Two-dimensional and M-mode echocardiogram. Blood Pressure: 96/64 mmHg INDICATION Chest Pain Limited to evaluate EF RISK FACTORS Height: 5'8", Weight: 228 DIMENSIONS LVDd6.5 (3.8-5.7cm)LA (2D) (1.9-4.0cm)Aortic Root (2.0-3.7cm) LVDs5.9 (2.5-4.0cm)LA (MM) (1.9-4.0cm)Aortic Cusp Exc (1.5-2.0cm) EF (%) 19.0 (55-70%)Rt. Atrium (1.9-4.0cm)Asc. Aorta cm IVSd1.1 (0.7-1.1cm)RV (D) (1.8-2.4cm) Mitral Valve MitralMitral Stenosis E/A ratio0.02D MVAcm2 Other Information Quality : LimitedRhythm : Conclusion lvef 20% dialted LV severe systolic HF RV enlargement biatrrial enlargement limited study
--- NOTE | 2025-01-07 21:55 | DVHPNRES ---
Progress Note Date Seen: Jan 07, 2025 Resident Creating Document: GUS PERDOMO RESIDENT Medical Necessity Reason Pt with a Central, PICC or Fol: No Subjective Review of Systems This is a 59-year-old male with past medical history of congestive heart failure with reduced ejection fraction 30%, PTCA status post stent RCA on 11/15/2024, unprovoked DVT on Xarelto, HLD, HTN, pulmonary hypertension, PR x3 with nonischemic cardiomyopathy, PVC, pneumonia BIBEMS due to chest pain which is sudden onset around 1:30 a.m. retrosternal, 7/10 intensity, pressure-like sensation, no radiation, not relieved by nitroglycerin tablets, no aggravating factor. Patient chest pain persist and around 4:00 a.m. he took another nitroglycerin but intensity of chest pain is not changes and decided to call ambulance and came to ER. Patient recent history of PTCA with Angioplasty was performed Successfully and stenting of the RCA. 8 weeks ago and currently on DOAC. Patient compliance with his medication. In ER patient received morphine and chest pain subsides. Currently patient denies any chest pain, SOB, headache, fever, abdominal pain, dysuria. Patient was follow-up with Cardiology in [facility]. Past medical history: CHF with reduced ejection fraction 30%, PTCA status post stent RCA on 11/15/2024, DVT on Xarelto, HLD, HTN, pulmonary hypertension, PR x3 with nonischemic cardiomyopathy, PVC, pneumonia Surgical history: PTCA status post stent RCA on 11/15/2024, History: Nothing Contributory Social history: Stopped smoking 1993, no EtOH or illicit drug use PCP: [facility] Patient seen and evaluated in bedside. Scheduled for tomorrow. No acute event overnight. Patient denies any SOB, chest pain, headache, palpitation, abdominal pain or any other acute distress. Cardiology consult appreciated Objective vital signs Vital Sign Date Time Temp Pulse Resp B/P (MAP) Pulse Ox O2 Delivery O2 Flow Rate FiO2 01/07/25 21:00 98.0 83 16 104/72 (83) 100 98.0 01/07/25 19:40 Room Air* 0 21 Total Intake and Output 01/06/25 01/06/25 01/07/25 15:00 23:00 07:00 Intake Total 800 ml 200 ml Balance 800 ml 200 ml medications Current Medications Medications Dose Ordered Sig/Leobardo Route Start Time Stop Time Status Last Admin Dose Admin Acetaminophen 650 mg Q6HP PRN PO 01/05/25 10:00 Nitroglycerin 0.4 mg Q5MINP PRN SL 01/05/25 10:00 Morphine Sulfate 2 mg Q30M PRN IV 01/05/25 10:00 Metoprolol Succinate 25 mg DAILY PO 01/05/25 10:00 01/07/25 14:36 25 MG Empaglifozin 10 mg DAILY PO 01/05/25 10:00 01/07/25 11:29 10 MG Spironolactone 25 mg DAILY PO 01/05/25 10:00 01/07/25 11:28 25 MG Atorvastatin Calcium 40 mg HS PO 01/05/25 22:00 01/07/25 21:23 40 MG Sacubitril/ Valsartan 1 tab BID PO 01/05/25 10:00 01/07/25 21:23 1 TAB Enoxaparin Sodium 100 mg Q12HR SC 01/06/25 22:00 01/07/25 11:30 100 MG Clopidogrel Bisulfate 75 mg DAILY PO 01/07/25 10:00 01/07/25 11:28 75 MG Ergocalciferol 50,000 unit Q7D PO 01/06/25 22:00 01/06/25 21:59 50,000 UNIT Aspirin 81 mg DAILY PO 01/07/25 10:00 01/07/25 11:29 81 MG Pantoprazole Sodium 40 mg DAILY IV 01/07/25 10:00 01/07/25 11:28 40 MG Examination General Appearance: Alert, Oriented X3, Cooperative, mild distress HEENT: Atraumatic, PERRLA, EOMI Respiratory: Clear to auscultation Cardiovascular: Regular rate, Normal S1 Abdominal: Normal bowel sounds, No hepatospenomegaly, No masses Extremities: No clubbing, No cyanosis, No edema, Normal pulses Skin: No rashes, No breakdown, No significant lesion Neuro: Normal gait, Normal speech, Strength at 5/5 X4 ext, Normal tone Psych/Mental Status: Mood NL laboratory and microbiology Laboratory Tests 01/07/25 05:30 Test 01/07/25 05:30 Range/Units Serum Glucose 95 74-106 mg/dL Problem List/Assessment/Plan Problem List/Assessment/Plan Chest pain rule out in-stent thrombosis Coronary artery disease status post PTCA of the proximal RCA x 1DES Paroxysmal atrial fibrillation/flutter, Stage IIIa, now NSR Chronic compensated HFrEF, NYHA class II Ischemic cardiomyopathy with LVEF of 30% Patient came with chest pain EKG shows no ST segment changes Troponins x 2 negative Aspirin 81 mg GDMT optimized- Metoprolol 25 mg Jardiance 10 mg Spironolactone 25 mg Entresto 24/26 mg Cardiology consult appreciated Scheduled for coronary angiogram on 01/08/2025. Continue therapeutic Lovenox Monitor vital DVT and Chronic thromboembolic pulmonary emboli Home medicine -(on Xarelto therapy, 2020) Lovenox therapeutic dose No signs symptoms of active bleeding Vitamin-D deficiency Vitamin-D level 20.4 Vitamin D3 38077 units p.o. weekly Hyperlipidemia Atorvastatin 40 mg Lipid profile Lifestyle modification Essential hypertension Metoprolol 25 mg Monitor blood pressure History of PR x3 with nonischemic cardiomyopathy with RCA stent placement Follow-up with cardiology outpatient Clopidogrel 75 mg Lovenox therapeutic dose Type 2 diabetes mellitus Continue Jardiance 10 mg Hx of tobacco use. Obesity with BMI 33.5 Lifestyle modification Diet cardiac GI prophylaxis pantoprazole DVT prophylaxis Lovenox Goals of care discussion. More than 21 minute spent with patient. Full code status. Plan discussed with Dr. Kauffman Plan discussed with: Patient, Other (Nurse) Date of Service: Jan 07, 2025 Billing Provider: HANNAH KAUFFMAN MD Common Visit Codes: [id number] INP/OBS CARE(HIGH) GUS PERDOMO RESIDENT Jan 07, 2025 21:55 EDENILSON WRIGHT RESIDENT Jan 09, 2025 00:04 HANNAH KAUFFMAN MD Jan 11, 2025 21:40
[2025-01-08] VITALS (11 sets, daily range): BP systolic 101–130; BP diastolic 62–93; PULSE 60–74; RESP 11–20; TEMP 98–98.6; O2SAT 92–99
[2025-01-08 09:05] LABS: Hematocrit 48.9 % (41.0-53.0); Hemoglobin 17.1 g/dL (13.5-17.5); Mean Corpuscular Hemoglobin 31.2 pg (28.0-32.0); Mean Corpuscular Volume 89.5 fL (80.0-100.0); Nucleated Red Blood Cells % 0.1 %
[2025-01-08 09:14] LABS: INR 1.03 (0.9-1.15); Partial Thromboplastin Time 25.4 SEC (24.5-34.5); Prothrombin Time 10.9 sec (9.3-11.8)
[2025-01-08 09:22] LABS: Alanine Aminotransferase 16 U/L (7-40); Albumin 4.4 g/dL (3.2-4.8); Alkaline Phosphatase 55 U/L (46-116); Anion Gap 10 (5-15); BUN/Creatinine Ratio 10.8 (10.0-20.0); Blood Urea Nitrogen 13 mg/dL (9-23); Calcium 9.5 mg/dL (8.7-10.4); Carbon Dioxide 27 mmol/L (20-31); Glucose 100 mg/dL (74-106); Potassium 5.0 mmol/L (3.5-5.1); Sodium 144 mmol/L (136-145); Total Protein 7.0 g/dL (5.7-8.2)
[2025-01-08 09:23] LABS: Bilirubin, Total 1.4 mg/dL (0.2-1.0); Chloride 107 mmol/L (98-107)
[2025-01-08] MEDS: SODIUM CHL 0.9% 0 ML ONE (17:27)
[2025-01-08] MEDS: HEPARIN IN NS 1000Units/500mL 1,500 ML ONE (17:27)
[2025-01-08] MEDS: IODIXANOL 320MG/ML 100ML BTL IV ONE (17:27)
[2025-01-08] MEDS: ANGIOMAX 250 MG VIAL IV ONE (17:27)
[2025-01-08] MEDS: HEPARIN SODIUM (PORCINE) 5000 UNITS/ML 1ML VIAL ONE (17:28)
[2025-01-08] MEDS: VERAPAMIL 2.5MG/ML INJ 2ML VIAL IV ONE (17:28)
[2025-01-08] MEDS: fentaNYL CITRATE 100 MCG/2 ML VL ONE (17:28)
[2025-01-08] MEDS: LIDOCAINE 2%HCL (LOCAL ANESTH.) INJ 20ML MDV ONE (17:29)
[2025-01-08] MEDS: MIDAZOLAM HCL 2MG/2ML 2ml VIAL (1mg/ml) ONE (17:29)
--- NOTE | 2025-01-08 18:29 | DVHOP2 ---
Operative Report - 2 Report Details Date: 01/08/25 Preop Diagnosis: CAD Postop Diagnosis: Mild CAD. Ectatic coronary vasculature Surgeon: Sheron Alberto MD Anesthesiologist: Conscious sedation Anesthesia: Mac, Local Consent: The patient was informed of the risks and benefits of the procedure. These include but are not limited to complications of anesthesia, postoperative infection, incomplete relief of symptoms, recurrence of symptoms, damage to bl ood vessels, nerves and tendons, deep venous thrombosis, pulmonary embolism and possible need for repeat surgery in the future. Complications: No complications Findings: Ectatic vasculature Indications for Surgery: Chest pain Name of Procedure Performed Left heart catheterization bilateral cine coronary angiography. Left ventriculography. Fractional flow reserve evaluation of RCA. Procedure Details Procedure Details: Prior local anesthesia with 2% lidocaine to the right wrist and full informed consent obtained the patient was prepped and draped in usual fashion followed by placement of a six Bengali sheath into the right radial artery through which a multipurpose catheter was used for ventriculography and cannulation of RCA. A JL4 was then used to cannulate the left main. No complications Hemodynamics: Aortic blood pressure was 130/70. End-diastolic pressure was 12. There was no gradient across the valve on pullback coronary anatomy: Coronary anatomy: The RCA is a large vessel is moderately ectatic. There was a mid 40 50% stenosis and fractional flow reserve evaluation was performed with a cath works program. The distal RCA as well as the posterolateral branches are normal. Left main is large and normal. Left anterior descending is ectatic with no critical lesions in its proximal mid or distal segments. The PDA and posterolateral branches are normal. The circumflex is a large vessel it has mild ectasia. There was a mid 20-30% stenosis. Ventriculography in the CASTILLO projection shows an EF of 50%. Impression: 1. Normal left ventricular end-diastolic pressure at rest. 2. normal ejection fraction. 3. moderately ectatic vessels without critical lesions in the fractional flow reserve evaluation of the RCA revealing noncritical stenosis. Recommendations: Initiate nebivolol and Ranexa. Continue medical therapy and risk factor modification. Condition Good Disposition Still a Patient Date of Service: Jan 08, 2025 Billing Provider: SHERON ALBERTO Sr., MD Cardiology Common Codes: 00729-[id number] INP/OBS CARE (High) Cardiology Procedure Codes: 49126-SSJK HEART CATH W/INTRA INJ SHERON ALBERTO Sr., MD Jan 08, 2025 18:29
--- NOTE | 2025-01-08 18:46 | DVHPN2 ---
Consult Progress Note Date Seen: Jan 08, 2025 Subjective Other Systems: Status post [facility] Objective vital signs Vital Sign Date Time Temp Pulse Resp B/P (MAP) Pulse Ox O2 Delivery O2 Flow Rate FiO2 01/08/25 18:27 73 14 115/68 (84) 94 01/08/25 13:00 98.0 98.0 01/08/25 08:23 Room Air* 0 21 Total Intake and Output 01/07/25 01/07/25 01/08/25 15:00 23:00 07:00 Intake Total 1100 ml 0 ml Balance 1100 ml 0 ml medications Current Medications Medications Dose Ordered Sig/Leobardo Route Start Time Stop Time Status Last Admin Dose Admin Acetaminophen 650 mg Q6HP PRN PO 01/05/25 10:00 Nitroglycerin 0.4 mg Q5MINP PRN SL 01/05/25 10:00 Morphine Sulfate 2 mg Q30M PRN IV 01/05/25 10:00 Metoprolol Succinate 25 mg DAILY PO 01/05/25 10:00 01/07/25 14:36 25 MG Empaglifozin 10 mg DAILY PO 01/05/25 10:00 01/07/25 11:29 10 MG Spironolactone 25 mg DAILY PO 01/05/25 10:00 01/07/25 11:28 25 MG Atorvastatin Calcium 40 mg HS PO 01/05/25 22:00 01/07/25 21:23 40 MG Sacubitril/ Valsartan 1 tab BID PO 01/05/25 10:00 01/07/25 21:23 1 TAB Enoxaparin Sodium 100 mg Q12HR SC 01/06/25 22:00 01/07/25 11:30 100 MG Clopidogrel Bisulfate 75 mg DAILY PO 01/07/25 10:00 01/08/25 10:42 75 MG Ergocalciferol 50,000 unit Q7D PO 01/06/25 22:00 01/06/25 21:59 50,000 UNIT Aspirin 81 mg DAILY PO 01/07/25 10:00 01/08/25 10:43 81 MG Pantoprazole Sodium 40 mg DAILY IV 01/07/25 10:00 01/08/25 10:43 40 MG Examination: LUNGS:Normal, CVS:Normal, NEURO:Normal laboratory and microbiology Laboratory Tests 01/08/25 08:13 Test 01/08/25 08:13 Range/Units Serum Glucose 100 74-106 mg/dL Problem List/Assessment/Plan Problem List/Assessment/Plan Chest pain, in-stent thrombosis ruled out Coronary artery disease status post PTCA of the proximal RCA x 1DES (on Plavix) Paroxysmal atrial fibrillation/flutter, Stage IIIa, now NSR Chronic compensated HFrEF, NYHA class II Ischemic cardiomyopathy with LVEF of 30% Chronic thromboembolic pulmonary hypertension Hx of LLE DVT/PE (on Xarelto therapy, 2020) Hypertension Dyslipidemia Prediabetes Hx of tobacco use Obesity Plan/Recommendation (Dr. Alberto) The patient underwent a coronary angiogram revealing a patent drug-eluding stent and no evidence of restenosis. Transthoracic echocardiogram revealed a LVEF of 20%. Continue single-antiplatelet therapy with Plavix, lipid lowering agent, and reestablish Xarelto therapy ([id number] score: 4 points). Continue with guideline directed medical management for CHF as tolerated. Initiate Ranexa therapy and nebivolol as outpatient. Continue PPI and consider GERD as a differential. The patient can benefit from treatment of CTEPH at a tertiary care center as outpatient. We will sign off at this time. Thank you for allowing us to care for this patient. This medical document was created using an electronic medical record system with voice recognition software and computerized dictation system. Although this document has been carefully reviewed, there might still be some phonetic and typographical errors. Occasional wrong-word or ``sound-alike substitutions may have occurred due to the inherent limitations of voice recognition software. These areas are purely typographical due to imperfections of the software programs and do not reflect any compromise in the patient's medical care. Please read the chart carefully and recognize, using context, where these substitutions have occurred. Plan discussed with: Other Date of Service: Jan 08, 2025 Billing Provider: SELENA SHELLEY Cardiology Common Codes: [id number] HOSP CARE(High SELENA SHELLEY Jan 08, 2025 18:46
--- NOTE | 2025-01-08 21:27 | DVHDSRES ---
Discharge Summary Date of Admission Resident Creating Document: GUS PERDOMO RESIDENT Jan 05, 2025 at 09:48 Date of Discharge: Jan 09, 2025 Labs/Diagnostic Data: Laboratory Results Test 01/08/25 08:13 01/07/25 05:30 01/06/25 05:25 01/05/25 12:00 White Blood Count 7.1 10^3/uL (4.4-10.8) Red Blood Count 5.46 10^6/uL (4.5-5.90) Hemoglobin 17.1 g/dL (13.5-17.5) Hematocrit 48.9 % (41.0-53.0) Mean Corpuscular Volume 89.5 fL (80.0-100.0) Mean Corpuscular Hemoglobin 31.2 pg (28.0-32.0) Mean Corpuscular Hemoglobin Concent 34.9 g/dL (32.0-36.0) Red Cell Distribution Width 13.4 % (11.8-14.3) Platelet Count 137 10^3/uL (140-450) Mean Platelet Volume 10.6 fL (6.9-10.8) Neutrophils (%) (Auto) 67.8 % (37.0-80.0) Lymphocytes (%) (Auto) 20.3 % (10.0-50.0) Monocytes (%) (Auto) 10.2 % (0.0-12.0) Eosinophils (%) (Auto) 1.4 % (0.0-7.0) Basophils (%) (Auto) 0.3 % (0.0-2.0) Neutrophils # (Auto) 4.8 10 ^3/uL (1.6-8.6) Lymphocytes # (Auto) 1.4 10 ^3/uL (0.4-5.4) Monocytes # (Auto) 0.7 10 ^3/uL (0-1.3) Eosinophils # (Auto) 0.1 10 ^3/uL (0-0.8) Basophils # (Auto) 0 10 ^3/uL (0-0.2) Nucleated Red Blood Cells 0.1 % Prothrombin Time 10.9 sec (9.3-11.8) Prothrombin Time INR 1.03 (0.9-1.15) Activated Partial Thromboplast Time 25.4 SEC (24.5-34.5) Sodium Level 144 mmol/L (136-145) Potassium Level 5.0 mmol/L (3.5-5.1) Chloride Level 107 mmol/L (98-107) Carbon Dioxide Level 27 mmol/L (20-31) Anion Gap 10 (5-15) Blood Urea Nitrogen 13 mg/dL (9-23) Creatinine 1.20 mg/dL (0.700-1.30) Glomerular Filtration Rate Calc 69 mL/min (>90) BUN/Creatinine Ratio 10.8 (10.0-20.0) Serum Glucose 100 mg/dL (74-106) Calcium Level 9.5 mg/dL (8.7-10.4) Total Bilirubin 1.4 mg/dL (0.2-1.0) Aspartate Amino Transferase (AST) 12 U/L (13-40) Alanine Aminotransferase (ALT) 16 U/L (7-40) Alkaline Phosphatase 55 U/L (46-116) Total Protein 7.0 g/dL (5.7-8.2) Albumin 4.4 g/dL (3.2-4.8) Hemoglobin A1c 5.7 % A1C (<5.7) Thyroid Stimulating Hormone (TSH) 0.88 uIU/mL (0.55-4.78) Vitamin B12 Level 839 pg/mL (211-911) Vitamin D 25-Hydroxy 20.4 ng/mL (30.0-100) Urine Color Light-yellow (Yellow) Urine Clarity Clear (Clear) Urine pH 8.5 (5.0-9.0) Urine Specific [place] 1.021 (1.001-1.035) Urine Protein Trace (Negative) Urine Ketones Negative (Negative) Urine Blood Negative /uL (Negative) Urine Nitrite Negative (Negative) Urine Bilirubin Negative (Negative) Urine Urobilinogen Normal mg/dL (Negative) Urine Leukocyte Esterase Negative /uL (Negative) Urine RBC <1 /hpf (0 - 3) Urine Microscopic WBC 1 /HPF (0-3) Urine Squamous Epithelial Cells Few /hpf (<5) Urine Bacteria None seen /hpf (None Seen) Urine Glucose 4+ mg/dL (Normal) Test 01/05/25 10:13 Troponin I High Sensitivity 9 ng/L (</=54) Other Laboratory Tests 01/08/25 08:13 Brief Hx & Hospital Course: This is a 59-year-old male with past medical history of congestive heart failure with reduced ejection fraction 30%, PTCA status post stent RCA on 11/15/2024, unprovoked DVT on Xarelto, HLD, HTN, pulmonary hypertension, MT x3 with nonischemic cardiomyopathy, PVC, pneumonia BIBEMS due to chest pain which is sudden onset around 1:30 a.m. retrosternal, 7/10 intensity, pressure-like sensation, no radiation, not relieved by nitroglycerin tablets, no aggravating factor. Patient chest pain persist and around 4:00 a.m. he took another nitroglycerin but intensity of chest pain is not changes and decided to call ambulance and came to ER. Patient recent history of PTCA with Angioplasty was performed Successfully and stenting of the RCA. 8 weeks ago and currently on DOAC. Patient compliance with his medication. In ER patient received morphine and chest pain subsides. Currently patient denies any chest pain, SOB, headache, fever, abdominal pain, dysuria. Patient was follow-up with Cardiology in [facility]. Past medical history: CHF with reduced ejection fraction 30%, PTCA status post stent RCA on 11/15/2024, DVT on Xarelto, HLD, HTN, pulmonary hypertension, MT x3 with nonischemic cardiomyopathy, PVC, pneumonia Surgical history: PTCA status post stent RCA on 11/15/2024, History: Nothing Contributory Social history: Stopped smoking 1993, no EtOH or illicit drug use PCP: [facility] Hospital course: Acute on chronic systolic CHF symptomatic by chest pain, with cardiology evaluation who recommended ruling out ACS/stent thrombosis during hospital stay with coronary angiography on 01/08/2025, requiring IV diuretics. On admission, patient EKG shows no ST segment changes, troponin x2 negative and complaince with medication (GDMT, clopidogrel and xeralto), added aspirin and Nebivolol and ranexa. During hospital stay, patient treated with both acute and chronic medical condition. Patient having history of DVT and chronic pulmonary embolism recommended V/Q scan as outpatient clinic, continue oral anticoagulant. Patient currently stable and denies any chest pain, SOB, headache, fever, abdominal pain, dysuria or any signs symptoms of bleeding. Patient is hemodynamically stable for discharge. The patient has received maximum benefits from inpatient treatment. Time was given to answer patient/ parents questions and concerns in Layman terms. patient verbalized understanding and agree with treatment and follow-up. Patient was recommended to return to the ED if she experiences any worsening symptoms such as, but not limited to current symptoms. Continue current home medication. follow-up with PCP, discharge Clinic within 2 weeks on Monday morning. follow-up with open cut examiner within 2-4 weeks after discharge from hospital. Patient educated and advised to resume home medication. PHYSICAL EXAMINATION CONSTITUTIONAL: NO: FEVER, CHILLS, SWEATS, WEAKNESS, MALAISE EYES: NO: PAIN, VISION CHANGE, CONJUNCTIVAE INFLAMMATION, EYELID INFLAMMATION, OTHER, REDNESS ENT: NO: EAR PAIN, EAR DISCHARGE, NOSE PAIN, NOSE DISCHARGE, NOSE CONGESTION, MOUTH PAIN, MOUTH SWELLING, THROAT PAIN, THROAT SWELLING RESPIRATORY: SHORTNESS OF BREATH; NO: COUGH, DRY, SOB WITH EXCERTION, WHEEZING, HEMOPTYSIS, PLEURITIC PAIN, SPUTUM, WHEEZING CARDIOVASCULAR: NO: CHEST PAIN, PALPITATIONS, ORTHOPNEA, PAROXYSMAL NOC. DYSPNEA, EDEMA, LT HEADEDNESS GASTROINTESTINAL: NO: NAUSEA, VOMITING, ABDOMINAL PAIN, DIARRHEA, CONSTIPATION, MELENA, HEMATOCHEZIA GENITOURINARY: NO DYSURIA, NO FREQUENCY, NO INCONTINENCE, NO HEMATURIA, NO RETENTION, NO OTHER MUSCULOSKELETAL: NO: OTHER, NECK PAIN, SHOULDER PAIN, ARM PAIN, BACK PAIN, HAND PAIN, LEG PAIN, FOOT PAIN SKIN: NO: RASH, LESIONS, JAUNDICE, BRUISING NEUROLOGICAL: NO: WEAKNESS, NUMBNESS, INCOORDINATION, CHANGE IN SPEECH, CONFUSION, SEIZURES Operations or Procedures ORDERING PHYSICIAN: JUDY MICHEL MD PROCEDURE(s): CXRP - CHEST PORTABLE REASON: sob ORDER NUMBER(s): [id number], ACCESSION NUMBER(s): [id number] XY CHEST PORTABLE, HISTORY: sob COMPARISON: XY CHEST XRAY 1 VIEW on DOS: 11/12/24, CT CT ANGIO CHEST CONTRAST on DOS: 10/21/24, XY CHEST XRAY 1 VIEW on DOS: 10/21/24 XY CHEST XRAY 1 VIEW on DOS: 11/12/24, CT CT ANGIO CHEST CONTRAST on DOS: 10/21/24, XY CHEST XRAY 1 VIEW on DOS: 10/21/24 TECHNICAL DATA: 1 view of the chest was obtained. FINDINGS: Lines and tubes: None Cardiomediastinal silhouette: normal Pulmonary vasculature: normal Lung expansion: normal Lung airspace: normal Lung interstitium: normal Pleura: normal Pneumothorax: no Bones: Unremarkable Other: no IMPRESSION: No acute intrathoracic abnormality. Condition at Discharge: Stable Final Diagnosis/Problems List Acute on chronic systolic heart failure (HFrEF, LVEF 30%) Microvascular angina Coronary artery disease with history of MT status post PTCA of the proximal RCA 10/2024 Paroxysmal atrial fibrillation/flutter, Stage IIIa, now NSR Ischemic cardiomyopathy with LVEF of 30% Chronic thromboembolic pulmonary hypertension Hx of LLE DVT/PE (on Xarelto therapy, 2020) Hypertension Dyslipidemia Prediabetes Hx of tobacco use Obesity Discharge Disposition: Home Discharge Instruct/Medications Follow Up/Referral: PCP OUTPATIENT CLINIC FOLLOW-UP WITH CARDIOLOGY OUTPATIENT CLINIC V/Q SCAN FOR CHRONIC PULMONARY EMBOLISM. Scheduled Amiodarone HCl (Amiodarone HCl), 1 TAB PO BID, (Reported) Aspirin (Aspirin Low Dose), 81 MG PO DAILY Atorvastatin Calcium (Atorvastatin Calcium), 1 TAB PO DAILY, (Reported) Clopidogrel Bisulfate (Clopidogrel), 1 TAB PO DAILY, (Reported) Empagliflozin (Jardiance), 1 TAB PO DAILY, (Reported) Ergocalciferol (Vitamin D 89746 Unit), 50,000 UNIT PO Q7D Nebivolol Hcl (Bystolic), 1 TAB PO DAILY Ranolazine (Ranolazine ER), 500 MG PO BID Rivaroxaban (Xarelto), 1 TAB PO DAILY Sacubitril-Valsartan (Entresto 24-26 mg), 1 TAB PO BID, (Reported) Spironolactone (Spironolactone), 1 TAB PO DAILY, (Reported) Scheduled PRN Acetaminophen (Acetaminophen), 650 MG PO Q6HP PRN Discharge Statement: "Patient was advised to return to the ER or call 911 if any headaches, dizziness, shortness of breath, chest pain, abdominal pain, bleeding, fevers, or worsening of medical condition. Patient was counseled about treatment plan, medications, possible side effects, patientverbalized understanding. All questions were answered to the best of my ability. This discharge took greater then 30 minutes in planning, reviewing documentation, counseling the patient, and discussing with other team members." ASSESSMENT ASSESSMENT Assessment Mild CAD. Ectatic coronary vasculature Date of Service: Jan 09, 2025 Billing Provider: HANNAH KAUFFMAN MD Common Visit Codes: 18207-KDJ/[id number] DISCH DAY >30min GUS PERDOMO RESIDENT Jan 08, 2025 21:27 EDENILSON WRIGHT RESIDENT Jan 11, 2025 15:20 HANNAH KAUFFMAN MD Jan 12, 2025 10:19
[2025-01-08] MEDS: RANOLAZINE ER 500 MG TAB PO SCH (22:18)
[2025-01-08 22:54] LABS: Alanine Aminotransferase 19 U/L (7-40); Albumin 4.4 g/dL (3.2-4.8); Alkaline Phosphatase 56 U/L (46-116); Anion Gap 9 (5-15); BUN/Creatinine Ratio 12.1 (10.0-20.0); Blood Urea Nitrogen 16 mg/dL (9-23); Calcium 9.2 mg/dL (8.7-10.4); Carbon Dioxide 26 mmol/L (20-31); Chloride 105 mmol/L (98-107); Potassium 4.0 mmol/L (3.5-5.1); Sodium 140 mmol/L (136-145); Total Protein 6.9 g/dL (5.7-8.2)
[2025-01-08 22:55] LABS: Bilirubin, Total 1.6 mg/dL (0.2-1.0); Glucose 132 mg/dL (74-106)
[2025-01-09] MEDS ORDERED: RANO500T3 PO (00:01)
[2025-01-09] MEDS ORDERED: ACET-1882 PO (00:01)
[2025-01-09] MEDS ORDERED: ERGO1CAP23 PO (00:01)
[2025-01-09 01:00] VITALS: BP 101/74; PULSE 65; RESP 20; TEMP 98.5; O2SAT 97
[2025-01-09] MEDS: MELATONIN 5 MG TAB PO ONE (02:51)
[2025-01-09 05:00] VITALS: BP 98/72; PULSE 57; RESP 20; TEMP 98.5; O2SAT 96
[2025-01-09 06:09] LABS: Chloride 106 mmol/L (98-107); Potassium 4.1 mmol/L (3.5-5.1); Sodium 142 mmol/L (136-145)
[2025-01-09 06:10] LABS: Anion Gap 10 (5-15); Calcium 8.9 mg/dL (8.7-10.4); Carbon Dioxide 26 mmol/L (20-31)
[2025-01-09 06:15] LABS: BUN/Creatinine Ratio 15.3 (10.0-20.0); Blood Urea Nitrogen 20 mg/dL (9-23); Glucose 94 mg/dL (74-106)
[2025-01-09 08:00] VITALS: PULSE 60
[2025-01-09 08:23] VITALS: PULSE 60; RESP 18; O2SAT 96
[2025-01-09 09:00] VITALS: BP 117/86; PULSE 60; RESP 18; TEMP 98.1; O2SAT 96
--- NOTE | 2025-01-09 13:40 | ECG ---
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
--- NOTE | 2025-01-09 13:40 | ECG ---
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
--- NOTE | 2025-01-09 16:48 | DVHPNRES ---
Progress Note Date Seen: Jan 09, 2025 Resident Creating Document: GUS PERDOMO RESIDENT Medical Necessity Reason Pt with a Central, PICC or Fol: No Subjective Review of Systems This is a 59-year-old male with past medical history of congestive heart failure with reduced ejection fraction 30%, PTCA status post stent RCA on 11/15/2024, unprovoked DVT on Xarelto, HLD, HTN, pulmonary hypertension, KS x3 with nonischemic cardiomyopathy, PVC, pneumonia BIBEMS due to chest pain which is sudden onset around 1:30 a.m. retrosternal, 7/10 intensity, pressure-like sensation, no radiation, not relieved by nitroglycerin tablets, no aggravating factor. Patient chest pain persist and around 4:00 a.m. he took another nitroglycerin but intensity of chest pain is not changes and decided to call ambulance and came to ER. Patient recent history of PTCA with Angioplasty was performed Successfully and stenting of the RCA. 8 weeks ago and currently on DOAC. Patient compliance with his medication. In ER patient received morphine and chest pain subsides. Currently patient denies any chest pain, SOB, headache, fever, abdominal pain, dysuria. Patient was follow-up with Cardiology in [facility]. Past medical history: CHF with reduced ejection fraction 30%, PTCA status post stent RCA on 11/15/2024, DVT on Xarelto, HLD, HTN, pulmonary hypertension, KS x3 with nonischemic cardiomyopathy, PVC, pneumonia Surgical history: PTCA status post stent RCA on 11/15/2024, History: Nothing Contributory Social history: Stopped smoking 1993, no EtOH or illicit drug use PCP: [facility] Seen and evaluated in bedside. Denies any chest pain, SOB, headache, fever or any other acute distress. Right radial artery catheter site insertion dry, no hematoma, bleeding or sign of inflammation noted. Medically stable for discharge. Objective vital signs Vital Sign Date Time Temp Pulse Resp B/P (MAP) Pulse Ox O2 Delivery O2 Flow Rate FiO2 01/09/25 09:48 60 117/86 01/09/25 09:00 98.1 18 96 98.1 01/09/25 08:23 Room Air* 0 21 Total Intake and Output 01/08/25 01/08/25 01/09/25 15:00 23:00 07:00 Intake Total 850 ml 1200 ml Balance 850 ml 1200 ml Examination Constitutional: No: Fever, Chills, Sweats, Weakness, Malaise Eyes: No: Pain, Vision change, Conjunctivae inflammation, Eyelid inflammation, Other, Redness ENT: No: Ear pain, Ear discharge, Nose pain, Nose discharge, Nose congestion, Mouth pain, Mouth swelling, Throat pain, Throat swelling Respiratory: Shortness of breath; No: Cough, Dry, SOB with excertion, Wheezing, Hemoptysis, Pleuritic Pain, Sputum, Wheezing Cardiovascular: No: Chest Pain, Palpitations, Orthopnea, Paroxysmal Noc. Dyspnea, Edema, Lt Headedness Gastrointestinal: No: Nausea, Vomiting, Abdominal Pain, Diarrhea, Constipation, Melena, Hematochezia, Other Genitourinary: No Dysuria, No Frequency, No Incontinence, No Hematuria, No Retention, No Other Musculoskeletal: No: other, neck pain, shoulder pain, arm pain, back pain, hand pain, leg pain, foot pain Skin: No: Rash, Lesions, Jaundice, Bruising Neurological: No: Weakness, Numbness, Incoordination, Change in speech, Confusion, Seizures laboratory and microbiology Laboratory Tests 01/09/25 05:09 01/08/25 08:13 Test 01/09/25 05:09 Range/Units Serum Glucose 94 74-106 mg/dL Problem List/Assessment/Plan Problem List/Assessment/Plan Acute on Chronic compensated HFrEF(LVEF 30%) Microvasular angina Ruled out in-stent thrombosis Coronary artery disease with recent KS status post PTCA of the proximal RCA x 1DES Paroxysmal atrial fibrillation/flutter, Stage IIIa, now NSR Ischemic cardiomyopathy with LVEF of 30% Patient came with chest pain EKG shows no ST segment changes Troponins x 2 negative Discontinue Aspirin 81 mg and Started ranolazine GDMT optimized- Metoprolol 25 mg Jardiance 10 mg Spironolactone 25 mg Entresto 24/26 mg Cardiology consult appreciated coronary angiogram on 01/08/2025-negative for any major obstruction coronary artery Discontinue therapeutic Lovenox and started home dose Xarelto Monitor vital DVT and Chronic thromboembolic pulmonary emboli Home medicine -(on Xarelto therapy, 2020) Lovenox therapeutic dose No signs symptoms of active bleeding Vitamin-D deficiency Vitamin-D level 20.4 Vitamin D3 32971 units p.o. weekly Hyperlipidemia Atorvastatin 40 mg Lipid profile Lifestyle modification Essential hypertension Metoprolol 25 mg Monitor blood pressure History of KS x3 with nonischemic cardiomyopathy with RCA stent placement Follow-up with cardiology outpatient Clopidogrel 75 mg Lovenox therapeutic dose Type 2 diabetes mellitus Continue Jardiance 10 mg Hx of tobacco use. Obesity with BMI 33.5 Lifestyle modification Diet cardiac GI prophylaxis pantoprazole Goals of care discussion. More than18 minute spent with patient. Full code status. Plan discussed with Dr. Kauffman Plan discussed with: Patient, Other (Nurse) Date of Service: Jan 09, 2025 Billing Provider: HANNAH KAUFFMAN MD Common Visit Codes: [id number] INP/OBS CARE(HIGH) GUS PERDOMO RESIDENT Jan 09, 2025 16:48 EDENILSON WRIGHT RESIDENT Jan 11, 2025 15:30 HANNAH KAUFFMAN MD Jan 12, 2025 10:26
[2025-01-09] MEDS ORDERED: RIVAROXABAN 20 MG TAB PO SCH (18:00)
[2025-01-11] MEDS ORDERED: NEBI10TA2 PO (15:18)
[2025-01-11] MEDS ORDERED: RIVA20TA PO (15:22)
[2025-01-11] MEDS ORDERED: ASPI-325 PO (15:22)
== END 2025-01-09 10:15 | disposition home or self-care (01) | DRG 191 ==
LOC: EDBD 06:22 → ER 06:26 → OVERFLOW 09:48 → TELE-WESTW 09:53 → WEST WING 01-08 08:52 → TELE-WESTW 01-08 11:13
PROVIDERS: ADMIT Student in an Organized Health Care Education/Training Program; ATTEND Student in an Organized Health Care Education/Training Program
PROC: 4A023N7 Measurement of Cardiac Sampling and Pressure, Left Heart, Percutaneous Approach (ICD-10-PCS; principal; 2025-01-08)
PROC: B211YZZ Fluoroscopy of Multiple Coronary Arteries using Other Contrast (ICD-10-PCS; 2025-01-08)
PROC: B215YZZ Fluoroscopy of Left Heart using Other Contrast (ICD-10-PCS; 2025-01-08)
PROC: 4A033BC Measurement of Arterial Pressure, Coronary, Percutaneous Approach (ICD-10-PCS; 2025-01-08)
DX: I25.118 Atherosclerotic heart disease of native coronary artery with other forms of angina pectoris (principal); I50.23 Acute on chronic systolic (congestive) heart failure; I27.24 Chronic thromboembolic pulmonary hypertension; I11.0 Hypertensive heart disease with heart failure; E11.9 Type 2 diabetes mellitus without complications; E66.9 Obesity, unspecified; E55.9 Vitamin D deficiency, unspecified; E78.5 Hyperlipidemia, unspecified; I48.0 Paroxysmal atrial fibrillation; I25.5 Ischemic cardiomyopathy; G47.00 Insomnia, unspecified; F41.9 Anxiety disorder, unspecified; Z95.5 Presence of coronary angioplasty implant and graft; Z87.891 Personal history of nicotine dependence; I25.2 Old myocardial infarction; Z79.01 Long term (current) use of anticoagulants; Z82.49 Family history of ischemic heart disease and other diseases of the circulatory system; Z86.718 Personal history of other venous thrombosis and embolism; Z68.33 Body mass index [BMI] 33.0-33.9, adult; Z86.711 Personal history of pulmonary embolism
CPT/HCPCS: 36415; 71045; 80048; 80053; 81001; 82306; 82607; 83036; 84443; 84484; 85025; 85610; 85730; 86850; 86900; 86901; 93005; 93306; 93458; 93571; 99152; 99291; 99292; G0378; J2250; J2470; Q9967